=== PATIENT | female | born 1980 | race Caucasian/White ===

== ENCOUNTER 2022-01-27 22:06 | Inpatient (IN) | payer BC ==
[2022-01-27] MEDS ORDERED: KETOROLAC TROMETHAMINE 30 MG/1 ML VIAL IVPUSH ONE (22:42)
[2022-01-27] MEDS ORDERED: SODIUM CHLORIDE 500 ML IV STA (22:42)
[2022-01-27] MEDS ORDERED: KETOROLAC TROMETHAMINE 15 MG/ML VIAL ONE (23:10)
[2022-01-27] MEDS ORDERED: DOXYCYCLINE INJECTION 100 MG in DEXTROSE 5%-WATER 100 ML IVPB ONE (23:46)
[2022-01-27 23:47] LABS: BASO % 0.4 % (0-2.0); LYMPH % 7.5 % (8-40); MCHC 33.2 g/dl (32.0-36.0); MEAN CELL VOLUME 78.2 fl (80-96); MEAN PLT VOLUME 7.1 fl (7.5-11.1); MONO % 3.9 % (3.8-10.2); NEUT % 86.2 % (42.8-82.8); PLATELET COUNT 294 10^3/uL (134-434); RDW 15.9 % (11.6-15.6); WHITE BLOOD COUNT 16.1 K/mm3 (4.0-10.0)
[2022-01-27 23:54] LABS: EPI CELLS 17 /uL (0-25.1); HYALINE CASTS 1 /uL (0-3.1); URINE APPEARANCE CLOUDY; URINE BACTERIA 308 /uL (0-1359); URINE BILIRUBIN NEGATIVE (NEGATIVE); URINE COLOR YELLOW; URINE GLUCOSE (UA) NEGATIVE (NEGATIVE); URINE KETONE NEGATIVE (NEGATIVE); URINE LEUK ESTERASE 1+ (NEGATIVE); URINE NITRITE NEGATIVE (NEGATIVE); URINE PROTEIN NEGATIVE (NEGATIVE); URINE RBC 7 /uL (0-23.9); URINE UROBILINOGEN 0.2 mg/dL (0.2-1.0); URINE WBC 200 /uL (0-25.8)
[2022-01-28 00:08] LABS: BLOOD UREA NITROGEN 10.9 mg/dL (7-18); CALCIUM 8.8 mg/dL (8.5-10.1)
[2022-01-28 00:09] LABS: ALBUMIN 3.5 g/dl (3.4-5.0)
[2022-01-28 00:12] LABS: CREATININE 0.7 mg/dL (0.55-1.3)
[2022-01-28 00:13] LABS: BILIRUBIN,TOTAL 0.3 mg/dL (0.2-1)
[2022-01-28] MEDS ORDERED: ACETAMINOPHEN 1000 MG/100 ML BAG IVPB ONE ×2 (01:09→19:32)
[2022-01-28] MEDS ORDERED: ACETAMINOPHEN INJECTION 100 ML IVPB ONE (01:29)
[2022-01-28] MEDS ORDERED: morphine CARPU-JECT 2 MG/1 ML DISP.SYRIN IVPUSH ONE (02:55)
[2022-01-28] MEDS ORDERED: morphine SULFATE 4 MG/ML VIAL ONE (03:09)
[2022-01-28] MEDS ORDERED: SODIUM CHLORIDE 1,000 ML IV STA (04:01)
[2022-01-28] MEDS ORDERED: morphine CARPU-JECT 2 MG/1 ML DISP.SYRIN IVPUSH PRN (04:19)
[2022-01-28] MEDS ORDERED: AZTREONAM 0.5 GM in DEXTROSE 5%-WATER - 50 ML IVPB SCH (04:30)
[2022-01-28] MEDS ORDERED: ACETAMINOPHEN 325 MG TABLET (FP) PO PRN (04:40)
[2022-01-28] MEDS: GABAPENTIN 300 MG CAPSULE PO SCH ×3 (05:51→21:06)
[2022-01-28 06:46] VITALS: BMI 49.4
[2022-01-28] MEDS ORDERED: AZTREONAM 1 GM VIAL (RESTRICTED TO ID) ONE ×2 (09:13→15:57)
[2022-01-28] MEDS ORDERED: DEXTROSE 5%-WATER - 50 ML IVPB ONE ×2 (09:14→15:57)
[2022-01-28] MEDS: clonazePAM 0.5 MG TABLET PO SCH ×2 (09:58→21:06)
[2022-01-28] MEDS ORDERED: ENOXAPARIN NA (PORCINE) 40 MG/0.4 ML DISP.SYRIN SQ SCH (10:00)
[2022-01-28] MEDS: SODIUM CHLORIDE 1,000 ML IV SCH (12:45)
[2022-01-28 13:59] LABS: BASO % 0.4 % (0-2.0); HEMATOCRIT 35.2 % (32.4-45.2); HEMOGLOBIN 11.2 GM/dL (10.7-15.3); LYMPH % 16.5 % (8-40); MCH 25.3 pg (25.7-33.7); MCHC 31.9 g/dl (32.0-36.0); MEAN CELL VOLUME 79.5 fl (80-96); MEAN PLT VOLUME 7.6 fl (7.5-11.1); MONO % 3.4 % (3.8-10.2); NEUT % 72.7 % (42.8-82.8); PLATELET COUNT 306 10^3/uL (134-434); RBC 4.43 M/mm3 (3.60-5.2); RDW 15.9 % (11.6-15.6); WHITE BLOOD COUNT 13.3 K/mm3 (4.0-10.0)
[2022-01-28 14:23] LABS: CALCIUM 8.7 mg/dL (8.5-10.1)
[2022-01-28 14:24] LABS: ALBUMIN 3.3 g/dl (3.4-5.0); MAGNESIUM 2.2 mg/dL (1.8-2.4)
[2022-01-28 14:27] LABS: CREATININE 0.6 mg/dL (0.55-1.3); PHOSPHOROUS 4.5 mg/dL (2.5-4.9)
[2022-01-28 14:28] LABS: BILIRUBIN,TOTAL 0.5 mg/dL (0.2-1); TOT PROT 6.7 g/dl (6.4-8.2)
[2022-01-28] MEDS: AZTREONAM 1 GM in DEXTROSE 5%-WATER - 50 ML IVPB SCH ×2 (14:33→17:50)
[2022-01-28] MEDS ORDERED: IBUPROFEN 400 MG TABLET (FP) PO ONE (16:07)
[2022-01-28] MEDS ORDERED: PHENAZOPYRIDINE HCL 100 MG TABLET (FP) PO ONE (21:31)
[2022-01-28] MEDS: IBUPROFEN 800 MG/8 ML IJ IVPB PRN (23:10)
[2022-01-29] MEDS ORDERED: DEXTROSE 5%-WATER - 50 ML IVPB ONE ×3 (01:32→17:05)
[2022-01-29] MEDS ORDERED: AZTREONAM 1 GM VIAL (RESTRICTED TO ID) ONE ×3 (01:32→17:05)
[2022-01-29] MEDS: AZTREONAM 1 GM in DEXTROSE 5%-WATER - 50 ML IVPB SCH ×4 (02:24→18:28)
[2022-01-29] MEDS: SODIUM CHLORIDE 1,000 ML IV SCH ×2 (02:25→13:18)
[2022-01-29] MEDS: GABAPENTIN 300 MG CAPSULE PO SCH ×3 (06:23→21:52)
[2022-01-29] MEDS ORDERED: NARATRIPTAN HCL 1 MG PO ONE (06:29)
[2022-01-29 08:18] LABS: HEMATOCRIT 33.9 % (32.4-45.2); HEMOGLOBIN 11.3 GM/dL (10.7-15.3); MCH 26.3 pg (25.7-33.7); MCHC 33.4 g/dl (32.0-36.0); MEAN CELL VOLUME 78.8 fl (80-96); MEAN PLT VOLUME 7.2 fl (7.5-11.1); PLATELET COUNT 285 10^3/uL (134-434); RBC 4.31 M/mm3 (3.60-5.2); RDW 15.7 % (11.6-15.6); WHITE BLOOD COUNT 7.9 K/mm3 (4.0-10.0)
[2022-01-29 08:43] LABS: BLOOD UREA NITROGEN 7.7 mg/dL (7-18)
[2022-01-29 08:46] LABS: CREATININE 0.5 mg/dL (0.55-1.3)
[2022-01-29] MEDS: clonazePAM 0.5 MG TABLET PO SCH ×2 (10:42→18:27)
[2022-01-29] MEDS: ENOXAPARIN NA (PORCINE) 40 MG/0.4 ML DISP.SYRIN SQ SCH (10:42)
[2022-01-29] MEDS ORDERED: clonazePAM 0.5 MG TABLET PO SCH (10:54)
[2022-01-29] MEDS ORDERED: PHENAZOPYRIDINE HCL 100 MG TABLET (FP) PO SCH (13:09)
[2022-01-29] MEDS ORDERED: SUMAtriptan SUCCINATE 25 MG TABLET PO ONE (13:15)
[2022-01-29] MEDS: IBUPROFEN 800 MG/8 ML IJ IVPB PRN ×2 (13:19→20:40)
[2022-01-29] MEDS ORDERED: ACETAMINOPHEN 1000 MG/100 ML BAG IVPB PRN (13:48)
[2022-01-29] MEDS ORDERED: PHENAZOPYRIDINE HCL 100 MG TABLET (FP) PO PRN (15:43)
[2022-01-29] MEDS: CALCIUM CARBONATE 650 MG TABLET PO SCH (23:15)
[2022-01-30] MEDS ORDERED: DEXTROSE 5%-WATER - 50 ML IVPB ONE ×3 (01:13→18:24)
[2022-01-30] MEDS ORDERED: AZTREONAM 1 GM VIAL (RESTRICTED TO ID) ONE ×3 (01:13→18:23)
[2022-01-30] MEDS: AZTREONAM 1 GM in DEXTROSE 5%-WATER - 50 ML IVPB SCH ×3 (01:36→18:27)
[2022-01-30] MEDS: clonazePAM 0.5 MG TABLET PO SCH ×2 (06:30→18:28)
[2022-01-30] MEDS: GABAPENTIN 300 MG CAPSULE PO SCH ×3 (06:31→21:20)
[2022-01-30 07:43] LABS: HEMATOCRIT 33.9 % (32.4-45.2); HEMOGLOBIN 11.4 GM/dL (10.7-15.3); MCH 26.2 pg (25.7-33.7); MCHC 33.6 g/dl (32.0-36.0); MEAN PLT VOLUME 7.2 fl (7.5-11.1); PLATELET COUNT 269 10^3/uL (134-434); RBC 4.35 M/mm3 (3.60-5.2); RDW 15.9 % (11.6-15.6); WHITE BLOOD COUNT 8.2 K/mm3 (4.0-10.0)
[2022-01-30 08:04] LABS: CALCIUM 8.7 mg/dL (8.5-10.1)
[2022-01-30 08:05] LABS: BLOOD UREA NITROGEN 9.7 mg/dL (7-18)
[2022-01-30 08:08] LABS: CREATININE 0.6 mg/dL (0.55-1.3)
[2022-01-30] MEDS: NARATRIPTAN HCL 2.5 MG PO PRN ×2 (08:11→12:34)
[2022-01-30] MEDS: ENOXAPARIN NA (PORCINE) 40 MG/0.4 ML DISP.SYRIN SQ SCH (09:03)
[2022-01-30] MEDS: CALCIUM CARBONATE 650 MG TABLET PO SCH ×2 (09:04→10:26)
[2022-01-30] MEDS ORDERED: FLUCONAZOLE 150 MG TABLET PO ONE (13:15)
[2022-01-30] MEDS ORDERED: CALCIUM CARBONATE 650 MG TABLET PO PRN (13:54)
[2022-01-30] MEDS: IBUPROFEN 800 MG/8 ML IJ IVPB PRN ×2 (15:31→23:36)
[2022-01-30] MEDS ORDERED: PHENAZOPYRIDINE HCL 100 MG TABLET (FP) PO PRN (18:46)
[2022-01-31] MEDS ORDERED: AZTREONAM 1 GM VIAL (RESTRICTED TO ID) ONE ×3 (01:24→16:04)
[2022-01-31] MEDS ORDERED: DEXTROSE 5%-WATER - 50 ML IVPB ONE ×3 (01:25→16:04)
[2022-01-31] MEDS: AZTREONAM 1 GM in DEXTROSE 5%-WATER - 50 ML IVPB SCH ×2 (01:44→09:48)
[2022-01-31] MEDS: GABAPENTIN 300 MG CAPSULE PO SCH ×2 (06:24→13:13)
[2022-01-31] MEDS: clonazePAM 0.5 MG TABLET PO SCH (06:24)
[2022-01-31 07:14] LABS: HEMATOCRIT 34.9 % (32.4-45.2); HEMOGLOBIN 11.3 GM/dL (10.7-15.3); MCH 25.5 pg (25.7-33.7); MCHC 32.2 g/dl (32.0-36.0); MEAN CELL VOLUME 79.2 fl (80-96); MEAN PLT VOLUME 7.5 fl (7.5-11.1); PLATELET COUNT 289 10^3/uL (134-434); RBC 4.41 M/mm3 (3.60-5.2); RDW 15.7 % (11.6-15.6); WHITE BLOOD COUNT 8.5 K/mm3 (4.0-10.0)
[2022-01-31 07:28] LABS: CALCIUM 8.4 mg/dL (8.5-10.1)
[2022-01-31 07:29] LABS: BLOOD UREA NITROGEN 9.8 mg/dL (7-18)
[2022-01-31 07:32] LABS: CREATININE 0.6 mg/dL (0.55-1.3)
[2022-01-31] MEDS: ENOXAPARIN NA (PORCINE) 40 MG/0.4 ML DISP.SYRIN SQ SCH (12:11)
[2022-01-31] MEDS: IBUPROFEN 800 MG/8 ML IJ IVPB PRN (12:12)
[2022-01-31 15:20] VITALS: BP 128/83; PULSE 86; TEMP 98.3
[2022-01-31] MEDS ORDERED: AZTREONAM 1 GM in DEXTROSE 5%-WATER - 50 ML IVPB ONE (16:45)
== END 2022-01-31 17:37 | disposition home or self-care (01) | DRG 690 ==
LOC: JER 22:06 → JERBED 01-28 02:56 → J5S 01-28 05:46
PROVIDERS: ADMIT Internal Medicine; ATTEND Internal Medicine
PROC: 02HV33Z Insertion of Infusion Device into Superior Vena Cava, Percutaneous Approach (ICD-10-PCS; principal; 2022-01-31)
PROC: B518ZZA Fluoroscopy of Superior Vena Cava, Guidance (ICD-10-PCS; 2022-01-31)
DX: N39.0 Urinary tract infection, site not specified (principal); F41.9 Anxiety disorder, unspecified; M79.7 Fibromyalgia; I34.1 Nonrheumatic mitral (valve) prolapse; D72.829 Elevated white blood cell count, unspecified; G43.909 Migraine, unspecified, not intractable, without status migrainosus; L29.8 Other pruritus; Z88.1 Allergy status to other antibiotic agents
CPT/HCPCS: 36415; 36569; 74176-TC; 80048; 80053; 81003; 83036; 83605; 83735; 84100; 84703; 85025; 85027; 87040; 87086; 93005; 93010; 99285-25; C9803-CS; U0003; U0005